=== PATIENT | male | born 1995 | race Caucasian/White ===

== ENCOUNTER 2018-01-02 16:25 | Emergency (ER) | payer OTHER ==
[~2018-01-02] VITALS: Ht 167.6 cm; Wt 57.6 kg
--- OUTSIDE RECORDS SUMMARY | ~2018-01-02 | XMS | Clinical Summary ---
Demographics + + + | Address | [address] | | | [place] [address] | + + + | Home Phone | | + + + | Preferred Language | Unknown | + + + | Marital Status | Single | + + + | Jew Affiliation | Unknown | + + + | Race | Unknown | + + + | Ethnic Group | Unknown | + + + Author + + + | Author | [facility] | | | and [facility] | + + + | Organization | [facility] | | | and [facility] | + + + | Address | Unknown | + + + | Phone | Unavailable | + + + Support + + +---------+ + | Name | Relationship | Address | Phone | + + +---------+ + | ALEJANDRO MENON | GLEN | Unknown | | | ARMEN [place]end[place] | | | | + + +---------+ + | Cb Menon | ECON | Unknown | | + + +---------+ + Care Team Providers + +------+ + | Care Computer Information Science Professor Name | Role | Phone | + +------+ + PP | Unavailable | + +------+ + Allergies Not on File Current Medications Not on file Active Problems Not on file Social History + +-------+ +--------+------+ | Tobacco Use | Types | Packs/Day | Years | Date | | | | | Used | | + +-------+ +--------+------+ | Never Assessed | | | | | + +-------+ +--------+------+ + + + | Sex Assigned at | Date Recorded | | | | + + + | Not on file | | + + + Plan of Treatment + + + + + | Health Maintenance | Due Date | Last Done | Comments | + + + + + | Vaccine: | | | | | Dtap/Tdap/Td (1 - | 4 | | | | Tdap) | | | | + + + + + | Vaccine: Influenza | | | | | (#1) | 8 | | | + + + + + Results Not on filefrom Last 3 Months"
--- OUTSIDE RECORDS SUMMARY | ~2018-01-02 | XMS | Clinical Summary ---
Demographics + + + | Address | [address] | | | [place] [address] | + + + | Home Phone | | + + + | Preferred Language | Unknown | + + + | Marital Status | Single | + + + | Buddhist Affiliation | Unknown | + + + | Race | Unknown | + + + | Ethnic Group | Other Race | + + + Author + + + | Author | [facility] | + + + | Organization | [facility] | + + + | Address | Unknown | + + + | Phone | Unavailable | + + + Support + + +---------+ + | Name | Relationship | Address | Phone | + + +---------+ + | Cb Jeffery | ECON | Unknown | | + + +---------+ + | Ramírez Jeffery | ECON | Unknown | | + + +---------+ + Care Team Providers + +------+ + | Care Food Preparer Name | Role | Phone | + +------+ + | Eugene Quick | PP | | + +------+ + Source Comments KIKI is fully live on both [facility] and [facility] InPatient.[facility] Allergies No Known Allergies Current Medications No known medications Active Problems + + + | Problem | Noted Date | + + + | Keloid scar | 10/15/2008 | + + + | 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 | + + + Social History + +-------+ +--------+------+ | Tobacco [...] on file | | + + + Last Filed Vital Signs + + + + | Vital Sign | Reading | Time Taken | + + + + | Blood Pressure | - | - | + + + + | Pulse | - | - | + + + + | Temperature | - | - | + + + + | Respiratory Rate | - | - | + + + + | Oxygen Saturation | - | - | + + + + | Inhaled Oxygen | - | - | | Concentration | | | + + + + | Weight | 58.2 kg (128 lb 4.8 | 10/15/2008 1:12 PM PDT | | | oz) | | + + + + | Height | 157.5 cm (5' 2") | 10/15/2008 1:12 PM PDT | + + + + | Body Mass Index | 23.47 | 10/15/2008 1:12 PM PDT | + + + + Plan of Treatment + + + + + | Health Maintenance | Due Date | Last Done | Comments | + + + + + | Influenza (Flu) | | | | | vaccination (#1) | 8 | | | + + + + + Results Not on filefrom Last 3 Months Insurance + +--------+ +------+ + + | Payer | Benefi | Subscriber | Type | Phone | Address | | | t Plan | ID | | | | | | / | | | | | | | Group | | | | | + +--------+ +------+ + + | [employer] | HMA[employer]RG | xxxxxxxxxxx | PPO | [phone] [address] [address] [place] | | SHIELD | A | x | [phone] | [place], [place] | | | | | | | [phone] | + +--------+ +------+ + + + +--------+ +--------+ + + | Guarantor Name | Accoun | Relation to | Date | Phone | Billing Address | | | t Type | Patient | of | | | | | | | | | | + +--------+ +--------+ + + | CB CRUZ | Person | Parent | [birth year] | Home: | [address] | | | al/Fam | | 1965 | [phone] | [place] [address] | | | shr[address]ha | | | [phone] | | + +--------+ +--------+ + +
--- OUTSIDE RECORDS SUMMARY | ~2018-01-02 | XMS | Clinical Summary ---
Demographics + + + | Address | [address] | | | [place] [address] | + + + | Home Phone | | + + + | Preferred Language | Unknown | + + + | Marital Status | Single | + + + | Anabaptism Affiliation | Unknown | + + + [...] Team Providers + +------+ + | Care Farm Implement Engine Mechanic Name | Role | Phone | + +------+ + | Eugene Quick | PP | | + +------+ + Source Comments KIKI is fully live on both [facility] and [facility] InPatient.[facility] Allergies No Known Allergies Current Medications No [...] | HMA/RG | xxxxxxxxxxx | PPO | [phone] [address] [address] [place] | | SHIELD | A | x | | [phone] | [place], [place] | | | | | | | [phone] | + +--------+ +------+ + + + [...] | 1965 | [phone] | [place] [address] | | | [address] | | | [phone] | | + +--------+ +--------+ + +
--- OUTSIDE RECORDS SUMMARY | ~2018-01-02 | XMS | Clinical Summary ---
Demographics + + + | Address | [address] | | | [place] [address] | + + + | Home Phone | | + + + | Preferred Language | Unknown | + + + | Marital Status | Single | + + + | Uatsdin Affiliation | Unknown | + + + | Race | Unknown | + + + | Ethnic Group | Unknown | + + + Author + + + | Author | [facility] | | | and [facility] | + + + | Organization | [facility] | | | and [facility] [...] Team Providers + +------+ + | Care Passenger Service Manager Name | Role | Phone | + [...]
[~2018-01-02 16:25] MED LIST: OLANZAPINE15 MG PO
== END 2018-01-02 18:00 | disposition home or self-care (01) ==
LOC: ED 16:25
DX: Z53.21 Procedure and treatment not carried out due to patient leaving prior to being seen by health care provider (principal)

== ENCOUNTER 2018-01-03 07:03 | Emergency (ER) | payer OTHER ==
[~2018-01-03] VITALS: Ht 167.6 cm; Wt 57.6 kg
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
== END 2018-01-03 08:05 | disposition home or self-care (01) ==
LOC: ED 07:03
DX: S46.912A Strain of unspecified muscle, fascia and tendon at shoulder and upper arm level, left arm, initial encounter (principal); V49.9XXA Car occupant (driver) (passenger) injured in unspecified traffic accident, initial encounter; F17.200 Nicotine dependence, unspecified, uncomplicated; Z88.0 Allergy status to penicillin
CPT/HCPCS: 73030; 99283; 99406

== ENCOUNTER 2024-04-28 03:30 | Emergency (ER) | payer OTHER ==
[~2024-04-28] VITALS: Ht 167.6 cm; Wt 64.0 kg
[2024-04-28] MEDS ORDERED: KETOROLAC TROMETHAMINE 60 MG/2 ML VIAL IM ONE (03:45)
[2024-04-28] MEDS ORDERED: TRAMADOL HCL50 MG PO (03:55)
[2024-04-28] MEDS ORDERED: TRAMADOL HCL 50 MG HOME.PACK PO ONE (04:00)
[2024-04-28] MEDS ORDERED: methylPREDNISolone 4 MG HOME.PACK PO ONE (04:00)
[2024-04-28 04:13] VITALS: BP 146/84
== END 2024-04-28 04:13 | disposition home or self-care (01) ==
LOC: ED 03:30
DX: M54.50 Low back pain, unspecified (principal); F17.200 Nicotine dependence, unspecified, uncomplicated; Z88.0 Allergy status to penicillin; Z88.1 Allergy status to other antibiotic agents; Z98.1 Arthrodesis status
CPT/HCPCS: 72100; 96372; 99284; A9270; J1885